=== PATIENT | male | born 1965 | race Caucasian/White ===

== ENCOUNTER → 2021-10-31 06:20 | Outpatient (CLI) | payer SELFPAY ==
[2021-10-31 18:38] LABS: Basophils # 0.1 K/mm3 (0-0.2); Basophils % 1.1 % (0.1-2.0); Eosinophils # 0.6 K/mm3 (0.0-0.4); Eosinophils % 5.1 % (0.1-12.0); Hematocrit 48.2 % (42.0-52.0); Hemoglobin 15.1 g/dL (14.1-18.0); Lymphocytes % 26.9 % (10-50); Mean Corpuscular HGB Conc 31.3 g/dL (31.8-35.4); Mean Corpuscular Hemoglobin 31.4 pg (27.0-31.2); Mean Corpuscular Volume 100.4 fl (80-94); Mean Platelet Volume 10.3 fl (7.4-10.4); Monocytes # 0.9 K/mm3 (0.1-1.0); Monocytes % 7.8 % (1.7-9.3); Neutrophils # 6.6 K/mm3 (1.8-7.8); Neutrophils % 59.1 % (37.0-80.0); Platelet Count 332 K/mm3 (142-424); White Blood Count 11.2 K/mm3 (4.8-10.8)
[2021-10-31 18:44] LABS: Alanine Aminotransferase 21 U/L (12-78); Albumin Level 3.9 g/dl (3.5-5.0); Albumin/Globulin Ratio 1.2 (1.1-1.8); Alkaline Phosphatase 117 U/L (38-126); Anion Gap 12.4 mEq/L (5-15); Aspartate Amino Transferase 23 U/L (17-59); Blood Urea Nitrogen 17 mg/dl (9-20); Calcium 9.2 mg/dl (8.4-10.2); Carbon Dioxide 23 mmol/L (22.0-30.0); Chloride 108 mmol/L (98-107); Chol/HDL Ratio 6.4 (1-3.5); Cholesterol 205 mg/dl (140-200); Estimated Glomerular Filt Rate 88 ml/min (>60); GFR (African American) 106 ML/MIN (>60); Globulin 3.3 g/dL (1.3-3.2); Glucose 110 mg/dl (74-100); HDL Cholesterol 32 mg/dl (40-60); Potassium 4.4 mmoL/L (3.5-5.1); Sodium 139 mmol/L (136-145); Total Protein,Serum 7.2 g/dl (6.3-8.2); Triglycerides 104 mg/dl (30-150); VLDL Cholesterol 21 mg/dL (0-40)
[2021-10-31 18:52] LABS: Bilirubin,Total 0.1 mg/dl (0.2-1.3)
[2021-10-31 19:00] LABS: 25-OH Vitamin D, Total 35.6 ng/mL (30-100)
[2021-10-31 19:15] LABS: Prostate Specific Ag Screen 1.9 ng/ml (0.0-4.0); Thyroid Stimulating Hormone 1.99 uIU/mL (0.465-4.68)
[2021-10-31 19:34] LABS: Vitamin B12 766 pg/mL (239-931)
[2021-10-31 19:39] LABS: Hemoglobin A1C 5.8 % (4.0-6.0)
[2021-11-02 08:27] LABS: Direct LDL Cholesterol 136 mg/dL (100-129)
== END ==
PROVIDERS: PCP Nurse Practitioner; Visit Provider Nurse Practitioner
DX: E11.69 Type 2 diabetes mellitus with other specified complication (principal); I10 Essential (primary) hypertension; R53.83 Other fatigue; K21.9 Gastro-esophageal reflux disease without esophagitis; Z12.5 Encounter for screening for malignant neoplasm of prostate
CPT/HCPCS: 80053; 80061; 82306; 82607; 83036; 84443; 85025; G0103

== ENCOUNTER → 2021-12-12 13:49 | Outpatient (CLI) | payer SELFPAY ==
--- NOTE | 2021-12-12 13:56 | CT_ITS ---
FINAL REPORT CLINICAL HISTORY: lung cancer screening Current smoker with a 60 pack-year smoking history FINDINGS: Low-Dose Chest CT CTDI vol (mGy): 2.90 DLP (mGy-cm): 116.46 Axial images were obtained from the lung apex to the mid abdomen by computed tomography. Low-dose protocol was utilized. FINDINGS: CHEST: There is no axillary adenopathy. There is a 2 cm lymph node anterior to the right mainstem bronchus on image 39, nonspecific. The heart is proper size. There is no pericardial or pleural effusion. Limited images of the upper abdomen are unremarkable. Lung window images demonstrate no suspicious infiltrate or nodule. There are 2 calcified granulomas in the posterior right lower lobe. IMPRESSION: Lung RADS category 1S. Recommend 12 month follow-up low-dose chest CT. S-modifier: Nonspecific lymph node anterior to the right mainstem bronchus. Reviewed, Interpreted and Dictated by Francesco Hyman MD Transcribed by Jesús Faulkner Authenticated and [facility]
--- NOTE | 2021-12-12 13:56 | XR_ITS ---
FINAL REPORT CLINICAL HISTORY: right knee pain FINDINGS: 2 views of the right knee were obtained. There is no acute fracture or dislocation. There is minimal narrowing of the medial compartment joint space. There is no acute soft tissue abnormality. IMPRESSION: No acute process. Reviewed, Interpreted and Dictated by Francesco Hyman MD Transcribed by Jesús Faulkner Authenticated and [facility]
--- NOTE | 2021-12-12 14:19 | MR_ITS ---
FINAL REPORT TECHNIQUE: Multiplanar imaging of the cervical spine was obtained without administration of intravenous contrast. CLINICAL HISTORY: RUE radiculopathy ALSO PATIENT STATED LEFT ARM PAIN X FEW WEEKS COMPARISON: No previous. FINDINGS: On the sagittal images, abnormal decrease signal is identified throughout the cervical discs. There is loss of the normal cervical lordosis. Moderate disc space narrowing is present at the C6-7 level. No malalignment is seen. C2-3: No disc bulge protrusion. C3-4: No disc bulge protrusion. C4-5: No disc bulge protrusion. C5-6: Mild diffuse disc bulge is present. There is moderate bilateral neural foraminal narrowing. C6-7: Moderate diffuse disc bulge is present. Broad-based midline disc protrusion is present. Moderate spinal canal compromise is well-seen on image #25 of series 5. There is high-grade right and moderate to high-grade left neural foraminal narrowing. C7-T1: No disc bulge or protrusion. IMPRESSION: 1. Moderate diffuse disc bulge C6-7 with broad-based midline disc protrusion, moderate spinal canal compromise, and high-grade right neural foraminal narrowing. Please correlate with any specific radicular symptoms. Authenticated and [facility]
== END ==
PROVIDERS: PCP Nurse Practitioner; Visit Provider Nurse Practitioner
DX: Z87.891 Personal history of nicotine dependence (principal); Z12.2 Encounter for screening for malignant neoplasm of respiratory organs; M25.561 Pain in right knee; M54.12 Radiculopathy, cervical region
CPT/HCPCS: 71271; 72141; 73560; 76376

== ENCOUNTER → 2022-11-06 11:12 | Outpatient (CLI) | payer BC, SELFPAY ==
[2022-11-06 12:56] LABS: Hemoglobin A1C 5.7 % (4.0-6.0)
== END ==
PROVIDERS: PCP Nurse Practitioner; Visit Provider Nurse Practitioner
DX: E11.9 Type 2 diabetes mellitus without complications (principal)
CPT/HCPCS: 36415; 83036